=== PATIENT | female | born 1955 | race African-American/Black ===

== ENCOUNTER 2019-05-01 09:24 | Inpatient (IN) ==
[2019-05-01] MEDS ORDERED: TENORMIN PO ONE (10:06)
[2019-05-01] MEDS ORDERED: PRINIVIL PO ONE (10:06)
[2019-05-01] MEDS ORDERED: TYLENOL PO ONE (10:07)
[2019-05-01] MEDS ORDERED: NITROGLYCERIN SL ONE ×2 (10:07→11:54)
--- NOTE | 2019-05-01 10:35 | EKG Report ---
Test Performed on : 05/01/2019 09:42:12 AM Test Reason : CP Blood Pressure : / mmHG Vent. Rate : 076 BPM Atrial Rate : 076 BPM P-R Int : 152 ms QRS Dur : 080 ms QT Int : 418 ms P-R-T Axes : 064 011 039 degrees QTc Int : 470 ms Normal sinus rhythm. with sinus arrhythmia. Normal ECG When compared with ECG of 12-AUG-2018 14:20, Nonspecific T wave abnormality no longer evident in Lateral leads Unconfirmed Result
[2019-05-01] MEDS ORDERED: LOPRESSOR IV ONE (11:02)
[2019-05-01 12:28] LABS: AGAP 11; BUN 13 mg/dL (8-22); CALCIUM 8.9 mg/dL (8.8-10.2); CHLORIDE 103 mmol/L (98-107); COSMO 279; CREATININE 0.5 mg/dL (0.5-0.9); ESTIMATED GFR > 60; GLUCOSE 91 mg/dL (70-104); POTASSIUM 3.8 mmol/L (3.5-5.1); SODIUM 140 mmol/L (136-145); TCO2 27 mmol/L (25-35)
[2019-05-01 12:32] LABS: BASO# 0.03 X1000 (0.0-0.2); BASO% 0.5 % (0.0-0.8); EOS# 0.07 X1000 (0.0-0.7); EOS% 1.1 % (0.0-10.0); HEMATOCRIT 42.3 % (37.0-47.0); HEMOGLOBIN 13.4 g/dL (12.0-16.0); IMM GRAN# 0.01 X1000 (0.0-0.04); IMM GRAN% 0.2 % (0.0-0.5); LYMPH# 2.27 X1000 (1.2-3.4); LYMPH% 35.5 % (20.5-51.1); MCH 26.1 PG (27-31); MCHC 31.7 g/dL (33-37); MCV 82.5 FL (81-99); MONO# 0.56 X1000 (0.11-0.59); MONO% 8.8 % (1.7-9.3); MPV 11.8 FL (7.4-10.4); NEUT# 3.46 X1000 (1.4-6.5); NEUT% 53.9 % (42.2-75.2); PLT 287 X1000 (130-400); RBC 5.13 XMIL (4.2-5.4); RDW 14.9 % (11.5-14.5)
[2019-05-01] MEDS ORDERED: CATAPRES ONE (12:35)
[2019-05-01] MEDS ORDERED: CATAPRES PO ONE (12:38)
[2019-05-01] MEDS ORDERED: APRESOLINE IV ONE (13:00)
[2019-05-01] MEDS ORDERED: ZOFRAN IV PRN (14:16)
[2019-05-01] MEDS ORDERED: NICODERM PATCH ONE (14:22)
[2019-05-01] MEDS: NICODERM PATCH TD SCH (14:35)
--- NOTE | 2019-05-01 16:41 | HISTORY AND PHYSICAL ---
CHIEF COMPLAINT: Chest pain and high blood pressure. HISTORY OF PRESENT ILLNESS: This is a 63-year-old female who presented to [facility] Emergency Room complaining of her blood pressure being elevated for 4 days as well as some midsternal chest pain and shortness of breath. She stated that she was unable to get a return call from her primary care physician over the last 2 weeks and therefore she ran out of her blood pressure medicine 4 days ago. She was found to have a blood pressure of 200/140 on arrival to the emergency room with O2 saturations were 97 to 98%. She complained of some chest pain that she described as a chest tightness. She did have some shortness of breath, although she feels like this was anxiety. She denied any palpitations, any nausea, vomiting, any diaphoresis. PAST MEDICAL HISTORY: 1. Hypertension. 2. Left adrenal mass. 3. 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 4. Asthma. PAST SURGICAL HISTORY: 1. Hysterectomy. 2. The patient underwent a cardiac catheterization in November 2015. She was found to have normal coronary angiography with a preserved left ventricular size and function and preserved left ventricular end-diastolic filling pressure with an EF of 65%. 3. She also states that she underwent a stress test within the last year and all was "normal." SOCIAL HISTORY: She smokes about a pack a day. She denies alcohol or illicit drug use. She is and lives with her . ALLERGIES: No known drug allergies. HOME MEDICATIONS: Lisinopril and atenolol. Doses will be confirmed by nursing staff. REVIEW OF SYSTEMS: Discussed with patient with pertinent positives stated in the HPI. She denied any syncope or dizziness, any palpitations, a productive cough, any fevers or chills, night sweats, recent weight loss or weight gain, any nausea, vomiting, diarrhea, constipation, black or bloody vomitus or stools, any hematuria dysuria frequency urgency. PHYSICAL EXAMINATION: GENERAL: This is a 63-year-old female who is lying on the stretcher in the emergency room in no distress. VITAL SIGNS: Blood pressure is 175/99 with a heart rate of 58, respirations are 18, temperature is 97.9 degrees oral with room air saturations 97 to 98%. EYES: Pupils equal, round, react to light. EOMs are intact. Sclerae are anicteric. HEENT: Head is normocephalic, atraumatic. Mucous membranes are moist. NECK: Supple with trachea midline. CARDIOVASCULAR: Regular rate and rhythm. S1 and S2 are appreciated. No murmurs. She has no lower extremity edema. Calves are nontender bilateral with peripheral pulses palpable x4 extremities. PULMONARY: Breath sounds are clear with no increased work of breathing noted. Chest rises and falls symmetric respiration. Chest wall is nontender to palpation. GASTROINTESTINAL: Abdomen is soft, nontender, nondistended with bowel sounds in all 4 quadrants. EXTREMITY: She has no lower extremity edema. Calves are nontender bilateral with peripheral pulses palpable x4 extremities. NEUROLOGIC: She is alert oriented x3. SKIN: Warm and dry. LABS: WBC is 6.4 with hemoglobin 13.4, hematocrit 42.3, and platelets 287,000. Sodium 140, potassium 3.8, BUN 13, creatinine 0.5 with a glucose of 91. EKG reveals normal sinus rhythm at a rate of 76. ASSESSMENT AND PLAN: 1. Chest pain. Chest pain has resolved. We will continue to trend troponins and cardiac profile. She will be placed on telemetry. 2. Uncontrolled hypertension. The patient has been out of medication for greater than 4 days. We will continue her lisinopril and atenolol. Add hydralazine 50 mg at 9, 3 and 9 and monitor vital signs. 3. We will check a BMP and CBC in the morning. Recheck EKG in the morning. 4. Nicotine abuse. Give nicotine patch. We did discuss smoking cessation with the patient. She does state she has interest in stopping. We will give her written information. 5. Plan was discussed with Dr. Pollack. Further treatments pending hospital course. Dictated by GENESIS Chavez for Salazar Pollack MD cc: GENESIS Chavez MD
[2019-05-01] MEDS: APRESOLINE PO SCH (20:30)
--- NOTE | 2019-05-01 21:00 | HISTORY AND PHYSICAL ---
ADDENDUM: Patient is a 63-year-old female who notes she has been out of her blood pressure medicines for a couple of weeks. Blood pressures were markedly elevated. We are going to admit her to the hospital to control. cc: Salazar Pollack MD
[2019-05-02 05:05] LABS: AGAP 12; BUN 16 mg/dL (8-22); CALCIUM 8.6 mg/dL (8.8-10.2); CHLORIDE 105 mmol/L (98-107); COSMO 283; CREATININE 0.5 mg/dL (0.5-0.9); ESTIMATED GFR > 60; GLUCOSE 107 mg/dL (70-104); POTASSIUM 3.6 mmol/L (3.5-5.1); SODIUM 141 mmol/L (136-145); TCO2 25 mmol/L (25-35)
[2019-05-02 05:15] LABS: HEMATOCRIT 39.8 % (37.0-47.0); HEMOGLOBIN 12.8 g/dL (12.0-16.0); MCH 26.5 PG (27-31); MCHC 32.2 g/dL (33-37); MCV 82.4 FL (81-99); MPV 12.2 FL (7.4-10.4); RBC 4.83 XMIL (4.2-5.4); RDW 14.9 % (11.5-14.5); WBC 6.27 X1000 (4.8-10.8)
--- NOTE | 2019-05-02 06:27 | EKG Report ---
Test Performed on : 05/02/2019 06:05:03 AM Test Reason : CP Blood Pressure : / mmHG Vent. Rate : 056 BPM Atrial Rate : 056 BPM P-R Int : 162 ms QRS Dur : 076 ms QT Int : 484 ms P-R-T Axes : 062 030 052 degrees QTc Int : 467 ms Sinus bradycardia. Otherwise normal ECG When compared with ECG of 01-MAY-2019 09:42, (Unconfirmed) No significant change was found Confirmed by Juan M Hoffmann MD ([id number]) on 05/03/2019 11:27:18 AM
[2019-05-02 07:34] VITALS: BP 196/79
[2019-05-02] MEDS: NICODERM PATCH TD SCH (08:35)
[2019-05-02] MEDS: APRESOLINE PO SCH (08:35)
[2019-05-02] MEDS ORDERED: TENORMIN PO SCH (09:00)
[2019-05-02] MEDS ORDERED: PRINIVIL PO SCH ×2 (09:00)
--- NOTE | 2019-05-03 17:56 | DISCHARGE SUMMARY ---
ADMISSION DATE: 05/01/2019 DISCHARGE DATE: 05/02/2019 DISCHARGE DIAGNOSIS: 1. Hypertensive urgency, resolved. 2. Hypertension. 3. Left adrenal mass. 4. Obstructive sleep apnea although the patient has not started treatment. 5. Asthma. CONSULTATIONS: None. PROCEDURES: None. BRIEF HOSPITAL COURSE: The patient is a 63-year-old female who presented to the hospital secondary to malignant hypertension. Notes that she has been out of her blood pressure medications for a couple of days. She does continue to smoke. We discussed with her the importance of stopping smoking. Thankfully, her blood pressures on discharge were much better with 160s and 150s systolic over 60s and 70s diastolic. She was feeling better. No chest pain or palpitations. DISPOSITION: Patient will be discharged home. She will continue her home medications. We did add hydralazine to her regimen. No other changes were made. She will follow up outpatient. We did discuss the again with the patient the importance of stopping smoking. The patient will follow up outpatient with Dr. Mederos. TIME SPENT: Greater than 30 minutes was spent in total care. cc: Salazar Pollack MD
== END 2019-05-02 10:02 | disposition home or self-care (01) | DRG 313 ==
LOC: P.ED 09:24 → P.MEDSURG 15:10
PROVIDERS: ATTEND Family Medicine

== ENCOUNTER 2019-05-07 10:30 | Inpatient (IN) ==
[2019-05-07] MEDS ORDERED: LABETALOL IV ONE ×2 (11:11→12:02)
[2019-05-07] MEDS ORDERED: LABETALOL ONE ×2 (11:26→12:17)
[2019-05-07 11:35] LABS: BASO# 0.05 X1000 (0.0-0.2); BASO% 0.7 % (0.0-0.8); EOS# 0.04 X1000 (0.0-0.7); EOS% 0.6 % (0.0-10.0); HEMATOCRIT 45.2 % (37.0-47.0); HEMOGLOBIN 14.7 g/dL (12.0-16.0); IMM GRAN# 0.01 X1000 (0.0-0.04); IMM GRAN% 0.1 % (0.0-0.5); LYMPH% 33.7 % (20.5-51.1); MCH 26.7 PG (27-31); MCHC 32.5 g/dL (33-37); MONO# 0.61 X1000 (0.11-0.59); MONO% 8.6 % (1.7-9.3); MPV 11.6 FL (7.4-10.4); NEUT# 4.01 X1000 (1.4-6.5); NEUT% 56.3 % (42.2-75.2); PLT 316 X1000 (130-400); RBC 5.51 XMIL (4.2-5.4); RDW 14.9 % (11.5-14.5); WBC 7.12 X1000 (4.8-10.8)
[2019-05-07 11:52] LABS: AGAP 14; ALBUMIN 4.5 g/dL (3.5-5.0); ALKALINE PHOSPHATASE 97 U/L (32-104); BUN 12 mg/dL (8-22); CALCIUM 9.3 mg/dL (8.8-10.2); CHLORIDE 103 mmol/L (98-107); COSMO 282; CREATININE 0.6 mg/dL (0.5-0.9); ESTIMATED GFR > 60; GLUCOSE 86 mg/dL (70-104); GOT 15 U/L (10-30); GPT 17 U/L (10-36); SODIUM 142 mmol/L (136-145); TCO2 26 mmol/L (25-35); TOTAL PROTEIN 7.3 g/dL (6.3-8.3)
[2019-05-07 12:22] LABS: URINE SOURCE CLEAN CATCH
[2019-05-07 12:25] LABS: BILIRUBIN URINE NEGATIVE (NEGATIVE); BLOOD URINE NEGATIVE (NEGATIVE); COLOR YELLOW; GLUCOSE URINE NEGATIVE (NEGATIVE); KETONE URINE NEGATIVE (NEGATIVE); LEUKOCYTES URINE NEGATIVE (NEGATIVE); NITRITE URINE NEGATIVE (NEGATIVE); PROTEIN URINE TRACE mg/dL (NEGATIVE); SP GRAVITY URINE 1.022; TURBIDITY URINE CLEAR (CLEAR); UROBILINOGEN URINE NORMAL (NORMAL)
[2019-05-07 12:26] LABS: UR EPITHELIAL CELLS <10 /HPF (<10); URINE BACTERIA NEGATIVE /HPF; URINE RBC <10 /HPF (<10); URINE WBC <10 /HPF (<10)
--- NOTE | 2019-05-07 13:04 | PROVIDER DOCUMENTATION ---
This chart was entered by Lorna Goldberg Scribe, acting as scribe for Blake Tabares MD. HPI-General Adult - General Chief Complaint: N/V/D Stated Complaint: N / V Time Seen by Provider: 05/07/19 10:48 Source: patient Allergies/Adverse Reactions: Patient Allergies Allergy/AdvReac Type Severity Reaction Status Date / Time No Known Allergies Allergy Verified 05/07/19 11:28 Home Medications: Home Medication List Medication Instructions Recorded Confirmed Last Taken Type Atenolol 50 mg PO HS #30 tab 05/02/19 Unknown Rx Hydralazine [Apresoline] 25 mg PO TID@0900,1500,2100 #90 tab 05/02/19 Unknown Rx Lisinopril 20 mg PO DAILY #30 tab 05/02/19 Unknown Rx Nicotine Patch [Nicoderm Patch] 21 mg TD DAILY #30 patch.[id number] 05/02/19 Unknown Rx - History of Present Illness -Gen Adult Nature of Presenting Problems: Patient is a 63 year old female who presents with multiple complaints. States symptoms of nausea, vomiting, headache, nasal congestion, sore throat and shortness of breath. Reports symptoms started 4 days ago. States she was admitted 6 days ago for elevated blood pressure. Reports she was placed on Lisinopril, Hydralazine, and Atenolol. Location of Pain/Injury: reports: none Quality of Pain: reports: none Severity: reports: mild Onset/Duration: reports: 4 days ago Timing: reports: still present Context/Activities at Onset: reports: light activity Associated Symptoms: reports: EENT symptoms (sore throat), headaches, sinus congestion/drainage (congestion), nausea, shortness of breath, vomiting Similar Symptoms Previously?: Yes Recently seen or treated by another doctor?: Yes Review of Systems - Adult - REVIEW OF SYSTEMS - ADULT Constitutional: reports: no symptoms reported Eyes: reports: no symptoms reported Ears, Nose, Mouth & Throat: reports: see HPI, sinus problem (congestion), throat pain Cardiovascular: reports: no symptoms reported Respiratory: reports: see HPI, shortness of breath Gastrointestinal: reports: see HPI, nausea, vomiting. denies: abdominal pain Genitourinary: reports: no symptoms reported Musculoskeletal: reports: no symptoms reported Integumentary: reports: no symptoms reported Neurological: reports: see HPI, headache/migraines Psychiatric: reports: no symptoms reported Endocrine: reports: no symptoms reported Hematologic/Lymphatic: reports: no symptoms reported Allergic/Immunologic: reports: no symptoms reported All Other Systems: Reviewed and Negative Past History - Adult - PAST MEDICAL HISTORY-ADULT Review of Records: reports: Old Records Reviewed, Nursing Assessment Review, Medications Reviewed, Social history reviewed & non-contributory. Major Childhood Illnesses: reports: denies history Cardiovascular: reports: HTN, hyperlipidemia Respiratory: reports: asthma, sleep apnea Gastrointestinal: reports: denies history Obstetrical/Gynecological: reports: denies history Genitourinary: reports: kidney disease Musculoskeletal: reports: denies history Neurological: reports: Seizures/Epilepsy Psychiatric: reports: denies history Endocrine/Immune: reports: denies history Other Conditions: reports: denies history - PRIOR SURGERIES/PROCEDURES Surgical/Procedure History: reports: hysterectomy, orthopedic (extremity), other (pt reports has had a surgery in her abdomen but cannot remember what it was.) - IMMUNIZATION STATUS Childhood Immunizations: See Nurse Assessment Flu Vaccine: See Nurse Assessment - FAMILY HISTORY Family History: reviewed, not pertinent - SOCIAL HISTORY Smoking: cigarettes, less than 1 pack/day Provider spent 3-5 mins advising pt. on dangers of tobacco.: Discussed manners to quit use, and f/u contacts for add'l counseling. Substance Use: denies Physical Exam-General - PHYSICAL EXAM-ADULT Initial Vital Signs Reviewed: Yes - CONSTITUTIONAL General Appearance: appears well, alert, no apparent distress - EYES Eyes: PERRL/EOMI, pink conjunctivae - HEAD, EARS, NOSE, MOUTH & THROAT HENMT: normocephalic/atraumatic, moist mucous membranes, pharynx normal - RESPIRATORY Respiratory: chest non-tender, lungs clear, normal breath sounds - CARDIOVASCULAR Cardiovascular: regular rate, rhythm, no gallop, no murmur - GASTROINTESTINAL (ABDOMEN) Abdominal Exam: normal bowel sounds, soft, tenderness (LLQ) - MUSCULOSKELETAL Back Exam: normal inspection, no CVA tenderness, no vertebral tenderness Extremity: non-tender, normal inspection - SKIN Integumentary: normal color, normal turgor, warm/dry - NEUROLOGIC Neurologic: grossly normal - PSYCHIATRIC Psych/Mental Status: normal mood/affect, normal thought content, normal thought process, oriented x 3 Progress - PLAN OF CARE/RESULTS Progress/Plan/Lab Results: Vital Signs - 8 hr 05/07/19 10:40 Temperature 98.1 F Pulse Rate 94 H Respiratory Rate 18 Blood Pressure 173/105 O2 Sat by Pulse Oximetry 95 Orders Category Date Time Status Cardiac Monitoring DIRECTED Care 05/07/19 11:06 Active Nursing- Obtain EKG ONCE Care 05/07/19 11:06 Active CBC WITH DIFF [HEME] Stat Lab 05/07/19 11:06 Ordered CK PROFILE [SP CHEM] Stat Lab 05/07/19 11:06 Ordered COMPREHENSIVE METABOLIC PANEL [CHEM] Stat Lab 05/07/19 11:06 Uncollected TROPONIN T HIGH SENSITIVITY Stat Lab 05/07/19 11:06 Uncollected URINALYSIS [URINALYSIS] Stat Lab 05/07/19 11:06 Uncollected EKG [EKG] Stat Ther 05/07/19 11:06 Ordered told nurse that she felt bad, did not take her am meds Result Diagrams: 05/07/19 11:25 05/07/19 11:25 - EKG 1 Time of EKG reading by physician:: 11:30 EKG Read and Signed by:: Blake Tabares EKG Interpretation (*Must complete 3 of following elements*): Abnormal Rate: 66 Rhythm: NSR [place]: normal [place] Interval: normal Comments: possible left atrial enlargement - CONSULTS/PCP/HOSPITALIST Notification #1 *Consult/PCP/Hospitalist*: [place] Time Discussed: 13:01 Consult Disposition: Will see in ED, Admit Departure - Departure Date of Disposition Decision: 05/07/19 Time of Disposition Decision: 13:02 DIAGNOSIS: Hypertensive urgency, Noncompliance with medication regimen, Tobacco abuse Disposition: ADMITTED INPATIENT 09 Certified Medical Emergency: Emergent Condition: Good Referrals and Follow-Ups: None,PCP [Primary Care Provider] - - Critical Care Note This patient required my direct & personal management of CC.: Yes Total Time (mins): 35 (following BP) Critical Care Statement: This patient required my direct personal management to treat or rule out processes, the absence of which, could potentiallly result in sudden, clinically significant life or limb threatening deterioration. Attestation - Physician/ SUBHA Attestation Patient care was provided by Advanced Practice Provider:: No The physician spent face to face time with patient:: Yes Advanced Practice Provider documentation review:: Supervising physician onsite and consulted in the evaluation and care of this patient. The physician did have a face to face encounter with the patient. This chart was documented by the indicated scribe, (Lorna Goldberg Scribe) and accurately reflects the services I performed and decisions made by me, Blake Tabares MD, as attested by the provider's signature.
[2019-05-07] MEDS: CARDENE 20 MG/NS 20 MG/200 ML PIGGYBACK IV SCH ×2 (13:11→13:39)
[2019-05-07] MEDS ORDERED: DUONEB (A & A) INH PRN (13:52)
[2019-05-07] MEDS ORDERED: TYLENOL PO PRN (13:52)
--- NOTE | 2019-05-07 14:07 | EKG Report ---
Test Performed on : 05/07/2019 11:27:31 AM Test Reason : CP Blood Pressure : / mmHG Vent. Rate : 066 BPM Atrial Rate : 066 BPM P-R Int : 148 ms QRS Dur : 080 ms QT Int : 432 ms P-R-T Axes : 064 044 056 degrees QTc Int : 452 ms Normal sinus rhythm. Possible Left atrial enlargement Borderline ECG When compared with ECG of 02-MAY-2019 06:05, No significant change was found Unconfirmed Result
--- NOTE | 2019-05-07 14:57 | HISTORY AND PHYSICAL ---
PRIMARY CARE PHYSICIAN: She has no one for her primary care provider. CHIEF COMPLAINT: Headache and chest pressure. HISTORY OF PRESENT ILLNESS: Ms. Nissa Barton is a 63-year-old female with a medical history of hypertension, asthma, COPD, also history of left adrenal mass with left adrenalectomy. She was most recently admitted here at [facility] with chest pain that improved, uncontrolled hypertension. She was only here for a short time and was discharged on 05/02/2019. She was admitted from 05/01/2019 to 05/02/2019. Currently she has had hypertensive systolic pressures mostly in the 200s over 100s despite IV push labetalol. She was initiated on a Cardene drip. She still continues to be somewhat hypertensive on that, so we will send her to [facility] ICU for management of the Cardene drip. We will also resume her home medications. So she states that she had presented with headache and chest pain on 05/01/2019, was treated for her hypertension, was discharged on 05/02/2019, and then on 05/03/2019, she started having nausea, dizziness and diarrhea with excessive urination, shortness of breath, but denied any lower extremity swelling, denied coughing up any colors. She was having chills but no fever. She was not checking her blood pressure at home. She states that she was taking her medications, but every time she would take them, it would make her nauseated, and she just would not throw up. So we are going to keep her and transfer her over to [facility] for further treatment and evaluation. PAST MEDICAL HISTORY: 1. Hypertension. 2. Left adrenal mass, status post adrenalectomy back in 2013, performed by Dr. Daniel. It was essentially a fatty tumor. 3. Obstructive sleep apnea and does not wear CPAP. 4. Asthma. 5. Seasonal allergies. PAST SURGICAL HISTORY: 1. Left adrenalectomy. 2. Hysterectomy. 3. Left heart cath in 2015. SOCIAL HISTORY: One pack per day smoker, started around 10 years ago, so in 2009 is when she started smoking. Denies alcohol or illicit drug use. She is and has a daughter. She does not work. FAMILY HISTORY: Mother with no medical conditions. Father with unknown cancer. ALLERGIES: No known drug allergies. HOME MEDICATIONS: 1. Hydralazine 25 mg p.o. t.i.d. 2. Atenolol 50 mg p.o. nightly. 3. Lisinopril 20 mg p.o. daily. REVIEW OF SYSTEMS: A 14-point review of systems are complete, and all were negative except for those mentioned in the above HPI. PHYSICAL EXAMINATION: VITAL SIGNS: Temperature is 98.1, heart rate 87, respiratory rate 18, blood pressure 166/107, O2 saturation is 97% on room air. GENERAL: Ms. Nissa Barton is a 63-year-old female. She is in no acute distress. She is able to answer questions appropriately. HEENT: Atraumatic and normocephalic. Pupils are equal, round and reactive to light. Extraocular movements were intact. Mucous membranes are moist. NECK: Trachea midline. CARDIOVASCULAR: S1, S2. Regular rate and rhythm. No murmurs, rubs or gallops. No lower extremity edema. Plus 2 dorsalis and radial pulses. Negative JVD or carotid bruits. PULMONARY: Clear to auscultation with bilateral breath sounds. No accessory muscle use or work of breathing noted. GASTROINTESTINAL: Soft, nontender and nondistended. Positive bowel sounds x4. EXTREMITIES: Moves all extremities equally. Full range of motion. NEUROLOGICAL: Alert and oriented x3. Follows commands. Sensory is intact. SKIN: Warm, dry and intact. Very dry around the ankles. DIAGNOSTIC DATA: White blood cells are 7000, hemoglobin 14, hematocrit 45, platelet count 316. Sodium is 142, potassium 4.0, BUN is 12, creatinine 0.6, glucose 86, calcium 9.3, bilirubin is 0.30, AST is 15, ALT is 17. CK is 116. Troponin is 14. Albumin 4.5. Urinalysis with trace protein. Imaging: None, but we are getting a chest x-ray. EKG is normal sinus rhythm with rate 66, QTC is 452. ASSESSMENT AND PLAN: 1. Hypertensive urgency. Despite IV push of labetalol, she continued to remain hypertensive and was initiated on a Cardene drip. Headache is better. Chest pressure is resolved, but she still continues to have somewhat hypertensive systolic pressures and diastolic pressures. Her last blood pressure was 166/107. She will be transferred to the ICU at [facility] and will reinitiate her home medications of hydralazine, atenolol and lisinopril and hopefully can get her weaned back off of the Cardene drip. 2. History of left adrenal mass that was reported as benign, left adrenalectomy. 3. Obstructive sleep apnea, does not wear CPAP. 4. Asthma. We will add nebulizers if needed. 5. Seasonal allergies. 6. DVT prophylaxis with Lovenox. 7. Tobacco abuse. Cessation discussed. Dictated by GENESIS Bowman for Salazar Pollack MD cc: GENESIS Bowman MD
[2019-05-07] MEDS: DUONEB (A & A) INH SCH ×3 (14:59→23:41)
--- NOTE | 2019-05-07 15:38 | Diag Imaging Result Doc PS360 ---
EXAM: CHEST-PORTABLE HISTORY: cp TECHNIQUE: Single view COMPARISON: 08/12/2018 FINDINGS: The lungs are well expanded. The heart is not enlarged. The vessels are not distended. There are no infiltrates. No effusion identified. IMPRESSION: Negative exam. Electronically signed by Zhen Tiwari 05/07/2019 3:36 PM
[2019-05-07] MEDS ORDERED: NICARDIPINE ONE (16:08)
[2019-05-07] MEDS ORDERED: SODIUM CHLORIDE ONE (16:08)
[2019-05-07] MEDS ORDERED: CARDENE 20 MG/NS 20 MG/200 ML PIGGYBACK ONE ×2 (16:12→18:24)
[2019-05-07] MEDS: APRESOLINE PO SCH ×2 (16:19→20:46)
[2019-05-07] MEDS ORDERED: TENORMIN PO SCH (21:00)
[2019-05-07] MEDS ORDERED: CARDENE 40 MG/NS 40 MG/200 ML PIGGYBACK IV SCH (21:30)
--- NOTE | 2019-05-08 02:23 | HISTORY AND PHYSICAL ---
ADDENDUM: The patient was just recently in the hospital secondary to hypertension. After going home she states that she had been taking her medication, although she notes to the ER doctor that she has missed some doses. She presented to the ER today with nausea, abdominal pain, headaches and chest wall pain. It hurts when she takes a deep breath. She is noted to have markedly elevated blood pressures up to over 200 systolic. Currently she is on a Cardene drip. We are going to admit her to the hospital, ICU, and continue to follow. cc: Salazar Pollack MD
[2019-05-08] MEDS: DUONEB (A & A) INH SCH ×3 (03:43→11:02)
[2019-05-08 07:11] LABS: BASO# 0.06 X1000 (0.0-0.2); BASO% 0.7 % (0.0-0.8); EOS# 0.07 X1000 (0.0-0.7); EOS% 0.8 % (0.0-10.0); HEMOGLOBIN 14.9 g/dL (12.0-16.0); IMM GRAN# 0.03 X1000 (0.0-0.04); IMM GRAN% 0.4 % (0.0-0.5); LYMPH# 2.54 X1000 (1.2-3.4); LYMPH% 30.7 % (20.5-51.1); MCH 26.2 PG (27-31); MCHC 31.7 g/dL (33-37); MCV 82.6 FL (81-99); MONO# 0.63 X1000 (0.11-0.59); MONO% 7.6 % (1.7-9.3); MPV 12.1 FL (7.4-10.4); NEUT# 4.94 X1000 (1.4-6.5); NEUT% 59.8 % (42.2-75.2); PLT 319 X1000 (130-400); RBC 5.69 XMIL (4.2-5.4); RDW 15.1 % (11.5-14.5); WBC 8.27 X1000 (4.8-10.8)
--- NOTE | 2019-05-08 07:15 | Diag Imaging Result Doc PS360 ---
EXAM: CHEST-PORTABLE 05/08/2019 HISTORY: sob TECHNIQUE: AP portable at 0520 COMMENT: The inspiration is better than on 05/07/2019. Otherwise are has been no significant change. IMPRESSION: Stable chest. Electronically signed by Yaw Lee 05/08/2019 7:13 AM
[2019-05-08 08:01] LABS: AGAP 14; ALB/GLOB RATIO 1.3; ALBUMIN 3.9 g/dL (3.5-5.0); ALKALINE PHOSPHATASE 93 U/L (32-104); BUN 10 mg/dL (8-22); CALCIUM 9.2 mg/dL (8.8-10.2); CHLORIDE 103 mmol/L (98-107); COSMO 276; CREATININE 0.6 mg/dL (0.5-0.9); ESTIMATED GFR > 60; GLUCOSE 92 mg/dL (70-104); GOT 14 U/L (10-30); GPT 15 U/L (10-36); MAGNESIUM 2.1 mg/dL (1.5-2.7); POTASSIUM 3.9 mmol/L (3.5-5.1); SODIUM 139 mmol/L (136-145); TCO2 22 mmol/L (25-35); TOTAL BILIRUBIN 0.46 mg/dL (0.20-1.00)
--- NOTE | 2019-05-08 08:09 | EKG Report ---
Test Performed on : 05/08/2019 06:49:24 AM Test Reason : chest pain Blood Pressure : / mmHG Vent. Rate : 058 BPM Atrial Rate : 058 BPM P-R Int : 152 ms QRS Dur : 070 ms QT Int : 452 ms P-R-T Axes : 066 048 100 degrees QTc Int : 443 ms Sinus bradycardia. Possible Left atrial enlargement Nonspecific T wave abnormality Abnormal ECG When compared with ECG of 07-MAY-2019 11:27, (Unconfirmed) Nonspecific T wave abnormality now evident in Inferior leads T wave inversion now evident in Anterior leads Confirmed by Joseph Greenfield MD ([id number]) on 05/08/2019 8:32:36 AM
[2019-05-08] MEDS ORDERED: LOVENOX SUBQ SCH (09:00)
[2019-05-08] MEDS ORDERED: PRINIVIL PO SCH (09:00)
[2019-05-08] MEDS: APRESOLINE PO SCH ×2 (09:23→14:47)
[2019-05-08 14:12] VITALS: BP 176/94
--- NOTE | 2019-05-09 14:19 | DISCHARGE SUMMARY ---
ADMISSION DATE: 05/07/2019 DISCHARGE DATE: 05/08/2019 DISCHARGE DIAGNOSIS: Hypertensive crisis. HOSPITAL COURSE: Briefly, a 63-year-old female who came in with hypertension. She had recently adjusted her blood pressure medicines, but then came in with persistent hypertension. Curiously, she does have a history of adrenal mass, but it was not Conn syndrome as far as it could be told. She was placed on labetalol and Cardene. Blood pressure stabilized. The following day, she was ready for discharge. Her creatinine is normal. Urine looked normal. So we will discharge her on some adjusted medications which includes lisinopril 40, atenolol 50, and hydralazine 25 t.i.d. She is to follow up with Dr. Abdifatah Platt. She was given laboratory data for renin, aldosterone, TSH, cortisol, and renal CT angiogram. Need to follow up with doctor for that purpose. TIME SPENT: 32 minute discharge. cc: Jim Pascual MD
== END 2019-05-08 15:10 | disposition home or self-care (01) | DRG 305 ==
LOC: P.ED 10:30 → SUATTDRO 18:24 → ICU 18:24
PROVIDERS: ATTEND Internal Medicine